=== PATIENT | male | born 1985 | race Hispanic/Latino ===

== ENCOUNTER 2020-02-11 22:36 | Emergency (ER) | payer OTHER ==
[~2020-02-11 22:36] MED LIST: Iopamidol-370 76% 500 ML 1 ML ONE
[2020-02-11] MEDS ORDERED: Ondansetron PF 4 MG/2 ML Vial ONE (23:06)
[2020-02-11] MEDS ORDERED: Morphine 4 MG/ML VIAL ONE (23:06)
[2020-02-11 23:13] LABS: #Basophils 0.1 thou/uL (0.0-0.2); #Eosinphils 0.1 thou/uL (0.0-0.7); #Lymphocytes 3.4 thou/uL (1.20-3.40); #Monocytes 0.5 thou/uL (0.11-0.59); #Neutrophils 4.8 thou/uL (1.40-6.50); %Basophils 1.5 % (0.0-1.0); %Eosinophils 0.9 % (0.0-10.0); %Lymphocytes 37.9 % (21.0-51.0); %Monocytes 5.8 % (0.0-10.0); Hemoglobin 15.9 g/dL (14.0-18.0); Mean Corpuscular Hemoglobin 30.1 pg (27.0-31.0); Mean Corpuscular Volume 88.3 fL (78.0-98.0); Mean Platelet Volume 8.9 fL (7.4-10.4); Platelet Count 318 thou/uL (130-400); Red Blood Cell (RBC) Count 5.27 mill/uL (4.70-6.10); White Blood Cell (WBC) Count 8.9 thou/uL (4.8-10.8)
[2020-02-11 23:36] LABS: ALT (SGPT) 40 U/L (8-55); AST (SGOT) 26 U/L (5-34); Albumin 4.1 g/dL (3.5-5.0); Alkaline Phosphatase 128 U/L (40-110); Anion Gap 16 mmol/L (10-20); BUN (Urea Nitrogen) 9 mg/dL (8.9-20.6); Bilirubin, Total 1.3 mg/dL (0.2-1.2); Calc. Creatinine Clearance 0 mL/min (70-130); Calcium 8.8 mg/dL (7.8-10.44); Carbon Dioxide 22 mmol/L (22-29); Chloride 102 mmol/L (98-107); Globulin 3.3 g/dL (2.4-3.5); Glucose 324 mg/dL (70-105); Lipase 10 U/L (8-78); Potassium 3.8 mmol/L (3.5-5.1); Protein, Total 7.4 g/dL (6.0-8.3); Sodium 136 mmol/L (136-145)
--- NOTE | 2020-02-11 23:36 | RAD ---
Portable upright frontal chest radiograph: 02/11/2020 COMPARISON: None HISTORY: Trauma, pain FINDINGS: Heart and mediastinal contours are unremarkable. Lungs appear clear. IMPRESSION: No acute findings.
--- NOTE | 2020-02-12 00:04 | CT ---
CT of the abdomen and pelvis: 02/11/2020 COMPARISON: None HISTORY: Injury, trauma, pain TECHNIQUE: Axial CT imaging obtained at 5 mm intervals from lung bases through pubic symphysis with I V contrast. Coronal and sagittal reformatted imaging obtained. FINDINGS: The visualized lung bases are unremarkable. No free intraperitoneal air or fluid is seen. There is diffuse hepatic hypodensity, evidence of steatosis. The spleen, pancreas, adrenal glands, an d kidneys appear unremarkable. Limited assessment of the bowel demonstrates no evidence for inflammatory change or obstruction. The appendix is unremarkable. The vascular structures of the abdomen/pelvis appear patent. No abdominal or pelvic lymphadenopathy is noted. Review of the osseous structures demonstrates no worrisome lytic or blastic bone lesions. There is no widening of the sacroiliac joints or the pubic symphysis. The femoral heads project normally over the respective acetabulum. There is degenerative change within the lower thoracic spine and at the thoracolumbar junction with m ultilevel disc space narrowing and anterior osteophyte formation. No acute osseous abnormality is seen. IMPRESSION: No acute findings.
== END 2020-02-12 01:32 | disposition home or self-care (01) ==
LOC: ERS 22:36
DX: M54.5 Low back pain (principal); R73.9 Hyperglycemia, unspecified; V86.99XA Unspecified occupant of other special all-terrain or other off-road motor vehicle injured in nontraffic accident, initial encounter
CPT/HCPCS: 71045; 74177; 80053; 83690; 85025; 96374; 96375; J2270; J2405; Q9967